=== PATIENT | female | born 1970 | race Caucasian/White ===

== ENCOUNTER 2020-12-13 10:38 | Emergency (ER) | payer OTHER, SELFPAY ==
[2020-12-13] VITALS (20 sets, daily range): BP systolic 139–217; BP diastolic 88–144; PULSE 86–102; RESP 10–21; TEMP 36.6; O2SAT 93–99
--- NOTE | ~2020-12-13 | XR_ITS ---
EXAMINATION: XR chest 2V DATE: 12/13/2020 11:50 INDICATION: Syncope. Midsternal chest pain. TECHNIQUE: Frontal and lateral views of the chest were obtained. COMPARISON: None. FINDINGS: The chest demonstrates clear lungs without pneumonia, pleural effusion, or pneumothorax. Th e heart size is normal. IMPRESSION: 1. No acute cardiopulmonary disease. Reviewed, dictated and finalized at location A. [employer]GER
--- NOTE | 2020-12-13 10:52 | ECG_ITS ---
Measurements Intervals [place] Rate: 93 P: 30 ND: 163 QRS: 56 QRSD: 84 T: 38 QT: 332 QTc: 414 Interpretive Statements SINUS RHYTHM NORMAL ECG Electronically Signed On 12-13-2020 10:54:51 [employer] by Andrea Saldivar D.O.
--- NOTE | 2020-12-13 10:54 | ED.ANXIETY ---
HPI - Anxiety General Chief Complaint: Anxiety Stated Complaint: lightheaded Time Seen by Provider: 12/13/20 10:53 History of Present Illness HPI narrative: 50 yo w/ h/o morbid obesity and anxiety presents to the ED for anxiety. She reports that she got her first COVID19 vaccination a few days ago and today at work some of her coworkers were talking about rumors they had heard about it being dangerous. She began to panic. She felt light headed and her heart was racing. Upon my evaluation she is feeling back to normal. Her blood pressure has been significnatly elevated. she reports a h/o white coat htn, never needed treatment. Related Data Allergies Allergy/AdvReac Type Severity Reaction Status Date / Time No Known Allergies Allergy Mild Verified 12/13/20 10:45 Review of Systems Review of Systems: All systems reviewed & are unremarkable except as noted in HPI and below Constitutional: Constitutional: Denies fever(s) and Denies weakness Eyes: Eyes: Reports no additional eye complaints ENT: Reports dizziness Cardiovascular: Cardiovascular: Reports rapid heart rate Respiratory: Respiratory: Reports as per HPI Gastrointestinal: Gastrointestinal: Denies abdominal pain Genitourinary: Genitourinary: Reports no additional female genitourinary complaints Neurologic: Reports dizziness Psychiatric: Psychiatric: Reports anxiety [facility] Past Medical History Medical History (Updated 12/16/20 @ 17:50 by Wade Camp MD) Obesity Social History Social History (Updated 12/16/20 @ 17:50 by Wade Camp MD) Smoking status: Never smoker Gender identity (if verbalized by the patient): Female Exam Const: General: no acute distress and alert Nutritional Appearance: obese morbidly obese Orientation/consciousness: patient oriented x3 HENMT: Head: normal to inspection Eyes: Conjunctivae: conjunctivae normal Pupils: Equal, round and reactive pupils present EOM: EOMs intact bilaterally Neck: Neck: normal visual inspection Resp: Effort & Inspection: normal respiratory effort Auscultation: clear to auscultation bilaterally, no rales, no rhonchi and no wheezes Cardio: Jugular venous distension: no JVD Rate: regular rate Rhythm: regular rhythm Heart sounds: no murmurs GI: Inspection: non-distended GI Palp: Yes Soft to palpation and No Tenderness to palpation present (GI) Skin: General skin exam: normal color Neuro: General: patient oriented x3, moves all extremities, no focal motor deficits and CN's II-XI intact bilaterally Cranial nerves: Yes Nystagmus not present Speech: normal speech Gait exam (Neuro): Normal gait present Extrem: General: edema bilateral Psych: Appearance: well kempt Affect: normal affect Course Vital Signs Vital signs: Vital Signs Temperature 36.6 C 12/13/20 10:39 Pulse Rate 96 12/13/20 10:39 Respiratory Rate 20 12/13/20 10:39 Blood Pressure 190/114 H 12/13/20 10:39 Pulse Oximetry 98 12/13/20 10:39 Temperature 36.6 C 12/13/20 10:39 Pulse Rate 88 12/13/20 12:32 Respiratory Rate 15 12/13/20 12:32 Blood Pressure 139/88 12/13/20 12:32 Pulse Oximetry 96 12/13/20 12:32 MDM - Anxiety MDM Narrative Medical decision making narrative: PCP contacted. I will start on metoprolol and she can follow-up with him next week. Differential Diagnosis Differential diagnosis: Likely acute anxiety and other (HTN, CHF, flash pulmonary edema) Medical Records Attestation: I reviewed the patient's medical records. Lab Data Attestation: I reviewed the patient's lab results. Result diagrams: 12/13/20 11:44 12/13/20 11:44 Labs: Lab Results 12/13/20 12/13/20 12/13/20 Range/Units 11:44 11:44 11:44 WBC 4.7 (4.5-10.0) K/mm3 RBC 3.79 L (4.2-5.4) M/mm3 Hgb 14.1 (12.0-15.0) g/dL Hct 41.7 (37.0-47.0) % MCV 110.0 H (80-100) fl MCH 37.2 H (26-34) pg MCHC 33.8 (32-36) g/dl RDW 12.5 (11.5-14
[2020-12-13] MEDS: LABETALOL HCL INJ 100 MG/20 ML VIAL 20 MG IV PUSH (11:37)
[2020-12-13 11:53] LABS: Basophils Percent Auto 0.4 % (0.2-1.2); Eosinophils Absolute Auto 0.2 K/mm3 (0-0.3); Hematocrit 41.7 % (37.0-47.0); Hemoglobin 14.1 g/dL (12.0-15.0); Immature Granulocyte Absolute 0.03 K/mm3 (0.00-0.031); Immature Granulocyte Percent A 0.6 % (0-0.5); Lymphocytes Absolute Auto 0.97 K/mm3 (0.9-3.2); Lymphocytes Percent Auto 20.5 % (18.3-44.2); Mean Corpuscular HGB Conc 33.8 g/dl (32-36); Mean Corpuscular Hemoglobin 37.2 pg (26-34); Mean Platelet Volume 9.2 fl (7.4-10.4); Monocytes Absolute Auto 0.6 K/mm3 (0.1-0.6); Neutrophils Percent Auto 62.5 % (45.5-73.1); Platelet Count Result 165 k/mm3 (150-375); Red Blood Count 3.79 M/mm3 (4.2-5.4); Red Cell Distribution Width 12.5 % (11.5-14.5); White Blood Count 4.7 K/mm3 (4.5-10.0)
[2020-12-13 12:03] LABS: Prothrombin Time 14.1 Seconds (11.1-14.7)
[2020-12-13 12:04] LABS: Partial Thromboplastin Time 25.1 SECONDS (22.3-36.8)
[2020-12-13 12:07] LABS: Anion Gap 5 mmol/L (8-16); Blood Urea Nitrogen 11 mg/dL (7-17); Calcium 8.8 mg/dL (8.4-10.2); Carbon Dioxide 28 mmol/L (22-30); Chloride 104 mmol/L (98-107); Estimated Glomerular Filt Rate > 60; Glucose 148 mg/dL (65-105); Potassium 4.3 mmol/L (3.4-5.0); Sodium 137 mmol/L (137-145)
[2020-12-13 12:19] LABS: NT Pro B Type Natriuretic Pept 43 PG/ML (5-100); Troponin I < 0.012 ng/mL (0.000-0.034)
== END 2020-12-13 12:54 | disposition home or self-care (01) ==
PROVIDERS: Emergency Provider Emergency Medicine; PCP Family Medicine Adolescent Medicine
DX: F41.9 Anxiety disorder, unspecified (principal); I10 Essential (primary) hypertension; E66.01 Morbid (severe) obesity due to excess calories
CPT/HCPCS: 36415; 71046; 80048; 83880; 84484; 85025; 85610; 85730; 93005; 96374; 99284

== ENCOUNTER → 2021-04-15 13:16 | Outpatient (CLI) | payer OTHER, SELFPAY ==
--- NOTE | ~2021-04-15 | MM_ITS ---
EXAMINATION: MM screening ken BI w babak HISTORY: Screening mammogram TECHNIQUE: Craniocaudal and mediolateral oblique 3-D tomosynthesis images were obtained and synthetic 2-D images were generated. CAD analysis was submitted and interpreted. COMPARISON: 03/07/2008 bilateral digital screening mammogram BREAST PARENCHYMAL COMPOSITION: The breasts are almost entirely fatty. FINDINGS: There is no evidence of suspicious mass, calcification, or architectural distortion to sugg est malignancy in either breast. There has been no suspicious interval change. IMPRESSION: 1. No mammographic evidence of malignancy. 2. Recommend routine screening mammography in one year. BI-RADS Category 1: Negative Reviewed, dictated and finalized at location A.
== END ==
PROVIDERS: Visit Provider Nurse Practitioner Obstetrics & Gynecology
DX: Z12.31 Encounter for screening mammogram for malignant neoplasm of breast (principal)
CPT/HCPCS: 77063; 77067

== ENCOUNTER → 2023-03-17 11:43 | Outpatient (CLI) | payer OTHER, SELFPAY ==
--- NOTE | ~2023-03-17 | XR_ITS ---
EXAM: XR ankle LT min 3V DATE: 03/17/2023 12:54 HISTORY: M25.572 - Pain in left ankle and joints of left foot . COMPARISON: 03/23/2011, images only. FINDINGS: Normal mineralization. No fracture or dislocation. No lytic or blastic lesion. Mild degene rative change in the tibiotalar joint. Moderate degenerative changes in multiple midfoot joints. Plan tar enthesopathy. Loss of the longitudinal arch. No erosion or periosteal change. Diffuse subcutaneou s edema. 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 Plantar enthesopathy. Pes randal nus. Diffuse subcutaneous edema. Reviewed, dictated and finalized at location K. 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 Plantar enthesopathy. Pes planus. Diffuse subcutaneous edema.
== END ==
PROVIDERS: PCP Family Medicine Adolescent Medicine; Visit Provider Nurse Practitioner Family
DX: M19.072 Primary osteoarthritis, left ankle and foot (principal)
CPT/HCPCS: 73610

== ENCOUNTER 2024-07-27 14:52 | Outpatient (CLI) | payer OTHER, SELFPAY ==
--- NOTE | ~2024-07-27 | MM_ITS ---
EXAMINATION: MM screening ken BI w babak HISTORY: Screening mammogram TECHNIQUE: Craniocaudal and mediolateral oblique 3-D tomosynthesis images were obtained and synthetic 2-D images were generated. CAD analysis was submitted and interpreted. COMPARISON: 04/15/2021 BREAST PARENCHYMAL COMPOSITION:Not Dense. The breasts are almost entirely fatty FINDINGS: No suspicious mass, calcification, or architectural distortion are identified in either larry ast to suggest malignancy. There has been no suspicious interval change. IMPRESSION: No mammographic evidence of malignancy. Recommend routine screening mammography in one year. BI-RADS Category 1: Negative Reviewed, dictated and finalized at location .
== END 2024-07-27 14:53 | disposition home or self-care (01) ==
LOC: MICIMG 14:53
PROVIDERS: PCP Family Medicine Adolescent Medicine; Visit Provider Family Medicine Adolescent Medicine
DX: Z12.31 Encounter for screening mammogram for malignant neoplasm of breast (principal)
CPT/HCPCS: 77063; 77067